=== PATIENT | male | born 1965 | race Caucasian/White ===

== ENCOUNTER 2018-03-03 13:46 | Emergency (ER) | payer OTHER ==
[~2018-03-03] VITALS: Ht 175.3 cm; Wt 86.2 kg
[2018-03-03] MEDS ORDERED: NORVASC5 MG PO (14:01)
[2018-03-03] MEDS ORDERED: LOSARTAN-HCTZ1 EAC3 PO (14:01)
[2018-03-03] MEDS ORDERED: LIPITOR 20 MG T20 M1 PO (14:02)
[2018-03-03 14:26] LABS: ABSOLUTE BASOPHILS 0.1 thou/uL (0.0-0.2); ABSOLUTE EOSINOPHILS 0.1 thou/uL (0.0-0.7); ABSOLUTE LYMPHOCYTES 2.4 thou/uL (0.8-5.3); ABSOLUTE MONOCYTES 0.7 thou/uL (0.0-1.2); ABSOLUTE NEUTROPHILS 7.3 thou/uL (1.6-8.1); BASOPHILS 0.9 %; EOSINOPHILS 0.6 %; HEMATOCRIT 43.4 % (42.0-52.0); HEMOGLOBIN 15.2 gm/dL (14.0-18.0); MCHC 34.9 g/dL (28.0-37.0); MCV 88.7 fL (80.0-100.0); MONOCYTES 6.7 %; NUCLEATED RBCS 0 /100WBC; PLATELET COUNT* 285 thou/uL (150-400); POLYS 68.8 %; RDW-CV 13.2 % (10.5-14.5); WBC 10.6 thou/uL (4.0-11.0)
[2018-03-03 14:34] LABS: ANION GAP 12 mmol/L (7-16); BUN 16 mg/dL (7-18); CHLORIDE 98 mmol/L (98-107); CO2 25 mmol/L (21-32); CREATININE 0.9 mg/dL (0.6-1.3); GLUCOSE 105 mg/dL (70-99); POTASSIUM 3.3 mmol/L (3.5-5.1); SODIUM 135 mmol/L (136-145)
[2018-03-03 14:41] LABS: ALBUMIN 4.2 g/dL (3.4-5.0); ALKALINE PHOSPHATASE 55 U/L (46-116); SGOT 24 U/L (15-37); SGPT 40 U/L (30-65); TOTAL BILIRUBIN 0.4 mg/dL (<0.1-1.0); TOTAL PROTEIN 7.5 g/dL (6.4-8.2); TROPONIN-I LEVEL <0.06 ng/mL (<0.06)
[2018-03-03] MEDS ORDERED: TORADOL 10 MG T10 MG PO (15:18)
[2018-03-03] MEDS ORDERED: FLEXERIL PO (15:18)
[2018-03-03 15:26] VITALS: BP 155/101
--- NOTE | 2018-03-05 09:38 | EKG ---
[place] [address] ELECTROCARDIOGRAM REPORT Name: JOAO SOL [facility] [id number] Admission: 03/03/18 Attend Phys: Discharge: 03/03/18 Date of : 61 Report #: [id number] THIS REPORT FOR: //name// [facility] ED Test Date: 2018-03-03 Test Time: 14:21:22 Pat Name: JOAO SOL Department: Room: Gender: M Rfid Analyst: Akua AGUILAR : 1965 Requested By: Meseret Ann Order Number: [id number] MD: Davidson Wagner Measurements Intervals [place] Rate: 91 P: 70 IN: 162 QRS: 63 QRSD: 99 T: 52 QT: 363 QTc: 447 Interpretive Statements Sinus rhythm ST elev, probable normal early repol pattern Baseline wander in lead(s) V1,V4 No previous ECG available for comparison Electronically Signed On 03-05-2018 9:38:16 CDT by Davidson Wagner [email or web address] <ELECTRONICALLY SIGNED> By: Davidson Wagner MD, [facility] 03/05/18 0938 [id number] 142 Davidson Wagner MD, FACC /EPI
== END 2018-03-03 15:27 | disposition home or self-care (01) ==
LOC: M.ERS 13:46
PROVIDERS: Nurse Practitioner Family
DX: S46.812A Strain of other muscles, fascia and tendons at shoulder and upper arm level, left arm, initial encounter (principal); R07.89 Other chest pain; E87.6 Hypokalemia; I10 Essential (primary) hypertension; E78.00 Pure hypercholesterolemia, unspecified; F17.210 Nicotine dependence, cigarettes, uncomplicated; X58.XXXA Exposure to other specified factors, initial encounter; Y93.89 Activity, other specified; Y92.89 Other specified places as the place of occurrence of the external cause; Y99.8 Other external cause status

== ENCOUNTER 2019-12-19 06:56 | Emergency (ER) | payer OTHER ==
[~2019-12-19] VITALS: Ht 175.3 cm; Wt 88.5 kg
[~2019-12-19 06:56] MED LIST: FLEXERIL PO; LIPITOR 20 MG T20 M1 PO; LOSARTAN-HCTZ1 EAC3 PO; NORVASC5 MG PO; TORADOL 10 MG T10 MG PO
[2019-12-19] MEDS ORDERED: BACTRIM DS TAB1 EACH PO (07:42)
[2019-12-19] MEDS ORDERED: KEFLEX500 M1 PO (07:42)
[2019-12-19 07:47] VITALS: BP 157/91
== END 2019-12-19 07:47 | disposition home or self-care (01) ==
LOC: M.ERS 06:56
DX: S61.402A Unspecified open wound of left hand, initial encounter (principal); L08.9 Local infection of the skin and subcutaneous tissue, unspecified; I10 Essential (primary) hypertension; E78.00 Pure hypercholesterolemia, unspecified; F17.210 Nicotine dependence, cigarettes, uncomplicated; W26.8XXA Contact with other sharp object(s), not elsewhere classified, initial encounter; Y93.89 Activity, other specified; Y92.89 Other specified places as the place of occurrence of the external cause; Y99.8 Other external cause status